=== PATIENT | female | born 1970 | race Caucasian/White ===

== ENCOUNTER 2020-01-22 22:15 | Emergency (ER) | payer OTHER, MEDICAID ==
[~2020-01-22] VITALS: Ht 167.6 cm; Wt 85.7 kg
[2020-01-22 22:33] VITALS: BP 155/90; Ht 167.6 cm; Wt 85.7 kg
== END 2020-01-23 00:11 | disposition home or self-care (01) ==
LOC: ED 22:15
DX: M25.531 Pain in right wrist (principal)
CPT/HCPCS: J1885; Q0092

== ENCOUNTER 2020-07-26 08:13 | Emergency (ER) | payer OTHER, MEDICAID ==
[~2020-07-26] VITALS: Ht 165.1 cm; Wt 95.7 kg
[2020-07-26 08:23] VITALS: Ht 165.1 cm; Wt 95.7 kg
[2020-07-26 08:59] VITALS: BP 115/93
== END 2020-07-26 08:59 | disposition home or self-care (01) ==
LOC: ED 08:13
DX: J45.901 Unspecified asthma with (acute) exacerbation (principal); J06.9 Acute upper respiratory infection, unspecified; J34.89 Other specified disorders of nose and nasal sinuses